=== PATIENT | female | born 1965 | race Caucasian/White ===

== ENCOUNTER 2017-06-04 14:03 | Emergency (ER) | payer BC ==
[~2017-06-04] VITALS: Ht 160 cm; Wt 94.8 kg
[2017-06-04] MEDS ORDERED: IV NORMAL SALINE 1,000ML 1,000 ML IV SCH (14:40)
--- NOTE | 2017-06-04 14:44 | PHYS DOC ---
General Chief Complaint: DIZZY/LIGHT HEADED Stated Complaint: HEART TESTS Time Seen by MD: 14:27 Source: patient Exam Limitations: no limitations Problems: History of Present Illness Initial Comments Patient is a 51-year-old female who comes to the emergency department complaining of dizziness and headache. Patient states that Sunday morning (2 days ago) she awoke about 6:30 in the morning feeling fine. She says when she got up to walk to the kitchen she became very dizzy and the dizziness lasted approximately 30 minutes that morning before resolving spontaneously. Dizziness is described as everything moving back and forth, she does not feel as if she is turning one way or the other and symptoms are not dependent on head position. For the past 2 days she' s had worsening of these symptoms, symptoms are only present when she is sitting upright standing or walking. Even as her symptoms have increased through the past 2 days they do resolve almost immediately when she lays down. She says she doesn't look at her urine and cannot quantify how much she's been producing normal color. She denies working outdoors she's been trying to stay hydrated drinking water. She's had no head trauma chest pain or difficulty breathing she denies nausea vomiting or diarrhea today but states she did throw up once yesterday after feeling extremely dizzy. Timing/Duration: getting worse (4 days) Severity: severe Modifying Factors: worse with movement, improves with rest Associated Symptoms: headaches, malaise, nausea/vomiting, weakness, other Allergies: Coded Allergies: No Known Drug Allergies (Unverified , 06/04/17) Past Medical History Medical History: no pertinent history Surgical History: noncontributory Social History Smoker: cigarettes Alcohol: none Drugs: none Review of Systems Constitutional: denies chills, denies diaphoresis, denies fever, malaise, weakness EENTM: denies eye pain, denies blurred vision, denies ear pain, denies ear discharge, denies throat pain, denies throat swelling, denies mouth swelling Respiratory: denies cough, denies shortness of breath, denies wheezing Cardiovascular: denies chest pain, denies palpitations, denies syncope Gastrointestinal: denies abdominal pain, denies diarrhea, denies nausea, denies vomiting Genitourinary: denies dysuria, denies frequency, denies hematuria Musculoskeletal: denies back pain, denies joint swelling, denies neck pain Psychiatric/Neurological: headache, denies numbness, denies paresthesia, denies pre-existing deficit, denies seizure, denies weakness Hematologic/Lymphatic: denies blood clots, denies easy bleeding, denies easy bruising Physical Exam General Appearance: moderate distress, obese Eyes: bilateral eye normal inspection, bilateral eye PERRL, bilateral eye EOMI Ear, Nose, Throat: hearing grossly normal, normal ENT inspection (mucous membranes very dry), normal pharynx Neck: non-tender, supple Respiratory: normal breath sounds, no respiratory distress Cardiovascular: normal peripheral pulses, regular rate, rhythm Gastrointestinal: non tender, soft Back: no CVA tenderness, no vertebral tenderness Extremities: non-tender, normal inspection, no pedal edema 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 IV fluids are being started and medications given at this time, patient will likely have a prolonged ED course waiting for medication effect. Labs and urine unremarkable 1633: RN reports the patient symptoms have resolved and she is ready to go. I rechecked her she is now sitting up smiling with no pain expression. She says that she still has some mild dizziness with activity but is agreeable to oral rehydration at home and is requesting discharge. She expressed agreement and understanding of the treatment plan. She was advised to stop smoking. Departure Time of Disposition: 16:34 Disposition: 01 HOME, SELF-CARE Diagnosis: hypovolemia Condition: IMPROVED Patient Instructions: Dehydration, Adult, [id number] Additional Instructions: Rest, no strenuous activity. Avoid the heat as much as possible for the next few days. Aggressive hydration with Gatorade. Follow-up with your doctor in 1-2 days if not better. Stop smoking seek medical assistance if necessary. Return to ED with new or changing symptoms. FAYE LANE DO Jun 04, 2017 14:44
[2017-06-04] MEDS ORDERED: KETOROLAC 30 MG/ML VIAL. IV ONE (14:45)
[2017-06-04] MEDS ORDERED: ONDANSETRON PF 4 MG/2 ML VIAL. IV ONE (14:45)
[2017-06-04 15:00] LABS: BILIRUBIN,URINE NEG (NEG); CLARITY,URINE CLEAR; COLOR,URINE STRAW; GLUCOSE,URINE NEG (NEG)
[2017-06-04 15:01] LABS: BACTERIA,URINE 0 /HPF (0-FEW); NITRITE,URINE NEG (NEG); RBC,URINE RARE /HPF (0-2); SQUAMOUS EPITHELIAL CELL,UR FEW /LPF; UROBILINOGEN,URINE 0.2 mg/dL (0.2 mg/dL); WBC,URINE OCC /HPF (0-4)
[2017-06-04 15:04] LABS: BASO # 0.1 x10^3/uL (0.0-0.2); BASO % 1 % (0-3); EOS # 0.2 x10^3/uL (0.0-0.7); EOS % 2 % (0-3); HEMATOCRIT 39.6 % (36.0-47.0); HEMOGLOBIN 13.6 g/dL (12.0-15.5); LYMPH # 2.1 x10^3/uL (1.0-4.8); LYMPH % 22 % (24-48); MEAN CORPUSCULAR HEMOGLOBIN 31 pg (25-35); MEAN CORPUSCULAR HGB CONC 34 g/dL (31-37); MEAN CORPUSCULAR VOLUME 89 fL (79-100); MONO # 0.7 x10^3/uL (0.0-1.1); MONO % 8 % (0-9); NEUT # 6.5 x10^3uL (1.8-7.7); NEUT % 68 % (31-73); PLATELET COUNT 285 x10^3/uL (140-400); RED BLOOD COUNT 4.43 x10^6/uL (3.50-5.40); RED CELL DISTRIBUTION WIDTH 14.6 % (11.5-14.5); WHITE BLOOD COUNT 9.5 x10^3/uL (4.0-11.0)
[2017-06-04 15:13] LABS: CALCIUM 8.8 mg/dL (8.5-10.1); CREATININE 0.8 mg/dL (0.6-1.0); GFR 75.6; POTASSIUM 3.9 mmol/L (3.5-5.1)
[2017-06-04 15:42] VITALS: BP 156/75
== END 2017-06-04 16:45 | disposition home or self-care (01) ==
LOC: ER 14:03
DX: E86.1 Hypovolemia (principal); F17.210 Nicotine dependence, cigarettes, uncomplicated
CPT/HCPCS: 36415; 80048; 81001; 85027; 96374; 96375; 99284; J1885; J2405; 96361; J7030

== ENCOUNTER → 2017-06-05 | Outpatient (CLI) | payer BC ==
[2017-06-04 15:42] VITALS: BP 156/75
--- NOTE | 2017-06-05 15:14 | RAD ---
CT of the head without contrast, 06/05/2017: History: Vertigo, headache The ventricles are within normal limits in size. There is no shift of the midline structures. There is no evidence of acute intracranial hemorrhage or mass effect. IMPRESSION: No acute intracranial abnormality is detected. PQRS Compliance Statement: One or more of the following individualized dose reduction techniques were utilized for this examination: 1. Automated exposure control 2. Adjustment of the mA and/or kV according to patient size 3. Use of iterative reconstruction technique
== END | disposition home or self-care (01) ==
LOC: CT 11:25
PROVIDERS: ATTEND Physician Assistant
DX: H81.13 Benign paroxysmal vertigo, bilateral (principal); R26.2 Difficulty in walking, not elsewhere classified
CPT/HCPCS: 70450